=== PATIENT | female | born 1960 | race Caucasian/White ===

== ENCOUNTER 2024-07-03 22:31 | Emergency (ER) | payer SELFPAY ==
[~2024-07-03] VITALS: Ht 167.6 cm; Wt 69.2 kg
[2024-07-03 22:32] VITALS: O2SAT 99
[2024-07-03 22:37] VITALS: TEMP 36.7; O2SAT 99
[2024-07-04 00:59] VITALS: BP 161/98; PULSE 65; RESP 12
[2024-07-04] MEDS: IBUPROFEN 400MG TABLET PO ONE (00:59)
== END 2024-07-04 01:25 | disposition home or self-care (01) ==
LOC: ER 22:31
DX: S52.502A Unspecified fracture of the lower end of left radius, initial encounter for closed fracture (principal); I10 Essential (primary) hypertension; Z79.899 Other long term (current) drug therapy; Z98.890 Other specified postprocedural states; V89.2XXA Person injured in unspecified motor-vehicle accident, traffic, initial encounter; Y93.01 Activity, walking, marching and hiking; Y92.89 Other specified places as the place of occurrence of the external cause; Y99.8 Other external cause status
CPT/HCPCS: 99283; 73110; 29125; A6449; A4565